=== PATIENT | female | born 1955 | race Caucasian/White ===

== ENCOUNTER → 2016-06-08 | Outpatient (CLI) | payer OTHER, BC ==
[~2016-06-08] MED LIST: HYD25 PO
--- NOTE | 2016-06-08 16:31 | RADRPT ---
PROCEDURE: Three-phase bone scan study CLINICAL INDICATION: 61 -year-old patient with left knee pain, status post bilateral knee replacem ents. TECHNIQUE: Following the intravenous injection of 25.9 mCi of Tc-99m MDP, a three-phase bone scan study of the knees bilaterally was obtained. COMPARISON: No prior bone scan studies. X-ray of the left knee dated January 27, 2016. FINDINGS: Blood flow phase of the study demonstrates mild asymmetrically increased blood flow surrounding the left knee prosthesis as compared to the right. Blood pooling images reveal mild asymmetrically increased blood pooling activity surrounding the lef t knee as compared to the right. Delayed images of both knees demonstrate evidence of a bilateral knee replacement . Mildly increased activity is seen surrounding both prosthesis, more prominent on the left. IMPRESSION: 1. Evidence of the left knee replacement with with mildly increased activity on the blood flow, blo od pooling images and delayed views surrounding the left knee prosthesis. The findings are nonspeci fic, may be related to prior surgery; prosthesis loosening and / or infectious process cannot be ent irely ruled out. 2. Evidence of a right knee replacement with likely postsurgical changes. 3. No other abnormal areas of increased uptake in the obtained limited views of both knees. RPTAT: HH .Keisha Manrique MD, Date Time Electronically viewed and signed by .Keisha Manrique MD, on 06/08/2016 16:31 .L/
== END | disposition home or self-care (01) ==
LOC: NUC 08:39
PROVIDERS: ATTEND Orthopaedic Surgery
DX: T84.84XA Pain due to internal orthopedic prosthetic devices, implants and grafts, initial encounter (principal); Z96.653 Presence of artificial knee joint, bilateral; Y83.8 Other surgical procedures as the cause of abnormal reaction of the patient, or of later complication, without mention of misadventure at the time of the procedure
CPT/HCPCS: 78315; A9503

== ENCOUNTER → 2016-07-27 | Outpatient (CLI) | payer OTHER, BC | END | disposition home or self-care (01) | LOC: HKI 08:34 | PROVIDERS: ATTEND Orthopaedic Surgery | DX: M25.562 Pain in left knee (principal); T84.84XA Pain due to internal orthopedic prosthetic devices, implants and grafts, initial encounter; Z96.653 Presence of artificial knee joint, bilateral | CPT/HCPCS: 20610; G0463 ==

== ENCOUNTER → 2017-07-22 | Outpatient (CLI) | END | disposition home or self-care (01) ==